=== PATIENT | female | born 1995 | race Caucasian/White ===

== ENCOUNTER 2017-08-04 11:04 | Emergency (ER) | payer MEDICAID ==
[2017-08-04 11:12] VITALS: BP 126/76
== END 2017-08-04 12:12 | disposition home or self-care (01) ==
LOC: ED 11:04
DX: L02.31 Cutaneous abscess of buttock (principal)

== ENCOUNTER 2017-08-08 20:54 | Emergency (ER) | payer MEDICAID ==
[2017-08-08 22:03] VITALS: BP 120/72
== END 2017-08-08 22:03 | disposition home or self-care (01) ==
LOC: ED 20:54
DX: L02.212 Cutaneous abscess of back [any part, except buttock and flank] (principal)
CPT/HCPCS: J2001

== ENCOUNTER 2017-08-10 17:32 | Emergency (ER) | payer MEDICAID ==
[2017-08-10 17:40] VITALS: BP 127/68
== END 2017-08-10 18:53 | disposition home or self-care (01) ==
LOC: ED 17:32
DX: Z48.01 Encounter for change or removal of surgical wound dressing (principal)

== ENCOUNTER 2017-08-14 13:48 | Emergency (ER) | payer MEDICAID ==
[2017-08-14 14:48] VITALS: BP 131/79
== END 2017-08-14 18:02 | disposition home or self-care (01) ==
LOC: ED 13:48
DX: Z48.01 Encounter for change or removal of surgical wound dressing (principal)

== ENCOUNTER 2019-07-02 16:29 | Emergency (ER) | payer MEDICAID ==
[~2019-07-02] VITALS: Ht 157.5 cm; Wt 65.9 kg
[2019-07-02 16:33] VITALS: Ht 157.5 cm; Wt 65.9 kg
[2019-07-02 20:30] VITALS: BP 118/79
== END 2019-07-02 20:30 | disposition home or self-care (01) ==
LOC: ED 16:29
DX: S62.623A Displaced fracture of middle phalanx of left middle finger, initial encounter for closed fracture (principal); S61.213A Laceration without foreign body of left middle finger without damage to nail, initial encounter; W01.0XXA Fall on same level from slipping, tripping and stumbling without subsequent striking against object, initial encounter; Y93.89 Activity, other specified; Y92.89 Other specified places as the place of occurrence of the external cause; Y99.8 Other external cause status
CPT/HCPCS: 90715; J2001; Q0092

== ENCOUNTER 2019-07-04 08:38 | Emergency (ER) | payer MEDICAID ==
[~2019-07-04] VITALS: Ht 157.5 cm; Wt 69.9 kg
[2019-07-04 08:50] VITALS: Ht 157.5 cm; Wt 69.9 kg
[2019-07-04 10:36] VITALS: BP 109/72
== END 2019-07-04 10:36 | disposition home or self-care (01) ==
LOC: ED 08:38
DX: S61.213D Laceration without foreign body of left middle finger without damage to nail, subsequent encounter (principal); X58.XXXD Exposure to other specified factors, subsequent encounter